=== PATIENT | male | born 1995 | race Caucasian/White ===

== ENCOUNTER 2023-07-09 07:20 | Outpatient (OUT) | payer SELFPAY ==
--- OUTSIDE RECORDS SUMMARY | 2023-07-09 07:23 | XMS_ITS | CCD ---
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 Name Role Phone Garrett Andre Unavailable Unavailable Garrett Andre Unavailable Unavailable NONE, NONE Consulting Unavailable NONE, NONE Primary Care Unavailable KRISTOPHER RISO MD Attending Unava KRISTOPHER Sood MD Admitting Unava ilsaw PATEL, DR REDMAN Admitting Unavailable JORGE, DR REDMAN Attending Unavailable JORGE, DR REDMAN Primary Care Unavailable DR ЮЛИЯ PATEL Consulting Unavailable DERICK NARANJO Admitting Unavailable DERICK NARANJO Attending Unavailable JORGE, DR REDMAN Primary Care Unavailable DERICK NARANJO Consulting Unavailable BRIANNA CHACON Attending Unavailable Problems Active Problems Problem Classification Problem Date Documented Da te Episodic/Chronic Residual codes; unclassified (2 sources) Other specified health status; Translations: [Other specified health status] Onset: 08-20-2022 Episodic Unclassified (2 sources) CONTACT W/AND (SUSP) EXPOS COVID-19; Translations: [CONTACT W/AND (SUSP) EXPOS COVID-19] Onset: 01-31-2022 Viral infection (1 source) COVID-19; Translations: [COVID-19] Onset: 01-31-2022 Past or Other Problems Problem Classification Problem Date Documented Da te Episodic/Chronic Diseases of mouth; excluding dental (4 sources) Diseases of lips; Translations: [DISEASES OF LIPS] Onset: 08-28-2021 Episodic Spondylosis; intervertebral disc disorders; other back problems (2 sources) Low back pain; Translations: [LOW BACK PAIN] Onset: 09-21-2020 Episodic Unclassified (1 source) CONTACT W/AND (SUSP) EXPOS COVID-19; Translations: [CONTACT W/AND (SUSP) EXPOS COVID-19] Onset: 01-27-2022 Results Test Name Value Interpretation Reference Range Facility Covid-19 PCR (CVDTBH)on 01-15 SARS-CoV-2 (COVID-19) RNA MARIANA+probe Ql (Unsp spec) Detected Critically abnormal NOT DETECTED [facility] Comment on above: Result Comment: This test is not yet jordin roved or cleared by the [place] FDA. When there are no FDA-approved or cleared tests available, and other criteria are met, FDA can make tests available under an emergency access mechanism called an Emergency Use Authorization (EUA). The EUA for this test is supported by the [place] of Health and Human Service's (HHS's) declaration that circumstances exist to justify the emergency use of in vitro diagnostics for the detection and/or diagnosis of the virus that causes COVID-19. This EUA will remain in effect (meaning this test can be used) for the duration of the COVID-19 declaration justifying emergency of IVDs, unless it is terminated or revoked by FDA (after which the test may no longer be used). Performed By: #### C VDTBH #### [facility] [address] [place] [address] Dr. Brian Gonzalez HERPES SIMPLEX 1/2 IGMon HSV, IgM I/II Combination 1.00 Ratio Critically high 0.00-0.90 [facility] Comment on above: Result Comment: Verified by repeat keaton lysis Negative <0.91 Equivocal 0.91 - 1.09 Positive >1.09 Performed By: #### H SVIGM #### [facility] [address] [place] [address] Dr. Brian Gonzalez HERPES SIMPLEX 1/2 IGGon HSV 1 IgG, Type Spec <0.91 Normal 0.00-0.90 [facility] Comment on above: Result Comment: Negative <0.91 Equivocal 0.91 - 1.09 Positive >1.09 Note: Negative indicates no antibodies detected to HSV-1. Equivocal may suggest early infection. If clinically appropriate, retest at later date. Positive indicates antibodies detected to HSV-1. Performed By: #### H SV IGG #### [facility] [address] [place] [address] Dr. Brian Goznalez HSV 2 IgG Type Spec <0.91 Normal 0.00-0.90 [facility] Comment on above: Result Comment: Negative <0.91 Equivocal 0.91 - 1.09 Positive >1.09 Note: Negative indicates no HSV-2 antibodies detected. Positive indicates HSV-2 antibodies detected. Equivocal and low positive HSV-2 screens (Index 0.91-5.00) may be false positive and are reflexed to supplemental testing in accordance with CDC guidelines. Performed By: #### H SV IGG #### [facility] [address] [place], [place] [address] Dr. Brian Gonzalez SHOULDER 2 OR MORE VIEWSon 1 07-04-2017 Thyrotropin Qn Final ReportAccession No: [id number] Performed: May 03 2018 6:59PMExamination: LEFT SHOULDER 2 OR MORE VIEWSLEFT SHOULDERREASON FOR STUDY: Pain after trauma.COMPARISON: None.REPORT: 3 views are done of the left shoulder displaying no fracture,dislocation, or bony lesion. The glenohumeral joint, AC joint, clavicle,andcoracoid process are unremarkable. Surrounding soft tissues areunremarkable.IMPRESSI ON:Unremarkable plain films of the left shoulder. Recommend followup asneeded.Interpreting Physician: KENTON LEONE D.O.Trans: [email or web address] : cc: Normal [facility] SPINE CERVICAL (2 or 3 VIEWS )on 05-03-2018 SPINE CERVICAL (2 or 3 VIEWS) Final ReportAccession No: [id number] Performed: May 03 2018 6:59PMExamination: SPINE CERVICAL (2 or 3 VIEWS)SPINE CERVICAL (2 or 3 VIEWS)HISTORY: Neck pain.COMPARISON: None.FINDINGS: AP, lateral and open-mouth odontoid views of the cervical spineareprovided. Vertebral bodies C1 through C7 are well delineated anddemonstratenormal height and alignment. Lateral masses of C1 are normally aligned [id number] the dens is intact. Intervertebral disc spaces are well-preserved.Precervic al soft tissues are within normal limits.IMPRESSION:Unrema rkable limited cervical spine series.Interpreting Physician: DIOMEDES TRIVEDI M.D.Trans: bminni : cc: Normal [facility] Encounters Encounter Date Encounter Type Care Provider Facility Start: 08-20-2022 End: 08-20-2022 ambulatory BRIANNA CHACON [facility] Start: 01-27-2022 End: 01-27-[address] ЮЛИЯ PATEL Facility:[facility] Start: 08-28-2021 End: 08-29-2021 ambulatory DERICK NARANJO Facility:[facility] Start: 09-21-2020 End: 09-21-2020 ambulatory NONE NONE Facility:[facility] Start: 05-03-2018 End: 05-03-2018 Emergency department patient visit Garrett Andre Facility:[place] Payers Date Payer Category Payer Unknown [id number] 1995 Unknown [id number] [id number] [id number] 1994 Unknown [id number] 2.16.84 [id number] 1959 Self-pay 1960 Unknown [id number] Unknown [id number] Summary Purpose Family History No Family History Records FoundNo Family History Records FoundNo Family History Records FoundNo Family History Records Found Advance Directives No Advanced Directives Records FoundNo Advanced Directives Records FoundNo Advanced Directives Records FoundNo Advanced Directives Records Found Additional Source Comments (unrecognized sect ion and content) No Status Records FoundNo Status Records FoundNo Status Records FoundNo Status Records Found INFORMATION SOURCE (unrecogn ized section and content) DATE CREATED AUTHOR 05/19/2018 [facility] DATE CREATED AUTHOR AUTHOR'S ORGANIZ ATION 04/04/2021 [facility] DATE CREATED AUTHOR AUTHOR'S ORGANIZ ATION 04/15/2022 [facility] DATE CREATED AUTHOR AUTHOR'S ORGANIZ ATION 08/22/2022 [facility] FOR RECORDS PERTAINING TO PATIENTS WHO ARE OR HAVE BEEN ENROLLED IN A CHEMICAL DEPENDENCY/SUBSTANCEABUSE PROGRAM, SOME INFORMATION MAY BE OMITTED. This clinical summary was aggregated from multiple sources. Caution should be exercised in using it in the provision of clinical care. This summary normalizes information from multiple sources, and as a consequence, information in this document may materially change the coding, format and clinical context of patient data. In addition, data may be omitted in some cases. CLINICAL DECISIONS SHOULD BE BASED ON THE PRIMARY CLINICAL RECORDS. [facility]. provides no warranty or guarantee of the accuracy or completeness of information in this document.
[2023-07-10 04:10] LABS: Varicella-Zoster V Ab, IgG 174 index (Immune >165)
[2023-07-10 06:09] LABS: Hep B Surface Ab Reactive (.)
== END 2023-07-09 07:21 | disposition home or self-care (01) ==
LOC: LAB 07:20
PROVIDERS: PCP Family Medicine; Visit Provider Family Medicine
DX: Z02.1 Encounter for pre-employment examination (principal)
CPT/HCPCS: 36415; 86706; 86787

== ENCOUNTER 2023-07-21 09:38 | Outpatient (OUT) | payer SELFPAY ==
--- OUTSIDE RECORDS SUMMARY | 2023-07-21 09:46 | XMS_ITS | CCD ---
Author Name Unknown Address [facility] [address] [place] [address] Organization [facility] Care Team Providers Care Animal Bounty Hunter Name Role Phone Garrett Andre Unavailable Unavailable Garrett Andre Unavailable Unavailable NONE, NONE Consulting Unavailable NONE, NONE Primary Care Unavailable KRISTOPHER RIOS MD Attending Unava KRISTOPHER Sood MD Admitting [...] spec) Detected Critically abnormal NOT DETECTED [facility] Comment on above: Result Comment: This test is not yet jordin roved or cleared by the [place] FDA. When there are no FDA-approved or cleared tests available, and other criteria are met, FDA can make tests available under an emergency access mechanism called an Emergency Use Authorization (EUA). The EUA for this test is supported by the [place] Clean[place] of Health and Human Service's (HHS's) declaration [...] used). Performed By: #### C VDTBH #### [facility] [address] [place] [address] Dr. Brian Gonzalez HERPES SIMPLEX 1/2 IGMon HSV, IgM I/II Combination 1.00 Ratio Critically high 0.00-0.[address] [facility] Comment on above: Result Comment: Verified by repeat keaton lysis Negative <0.91 Equivocal 0.91 - 1.09 Positive >1.09 Performed By: #### H SVIGM #### [facility] [address] [place] [address] Dr. Brian Gonzalez HERPES SIMPLEX 1/2 IGGon HSV 1 IgG, Type Spec <0.91 Normal 0.00-0.[address] [facility] Comment on above: Result Comment: Negative <0.91 Equivocal 0.91 - 1.09 Positive >1.09 Note: Negative indicates no antibodies detected to HSV-1. Equivocal may suggest early infection. If clinically appropriate, retest at later date. Positive indicates antibodies detected to HSV-1. Performed By: #### H SV IGG #### [facility] [address] [place] [address] Dr. Brian Gonzalez HSV 2 IgG Type Spec <0.91 Normal 0.00-0.[address] [facility] Comment on above: Result Comment: Negative <0.91 Equivocal 0.91 - 1.09 Positive >1.09 Note: Negative indicates no HSV-2 antibodies detected. Positive indicates HSV-2 antibodies detected. Equivocal and low positive HSV-2 screens (Index 0.91-5.00) may be false positive and are reflexed to supplemental testing in accordance with CDC guidelines. Performed By: #### H SV IGG #### [facility] [address] [place], [place] [address] Dr. Brian Gonzalez SHOULDER 2 OR MORE VIEWSon 1 07-04-2017 Thyrotropin Qn Final ReportAccession No: [id number] Performed: May 03 2018 6:59PMExamination: LEFT [...] KENTON LEONE D.O.Trans: [email or web address] : cc: Normal [facility] SPINE CERVICAL (2 or 3 VIEWS )on 05-03-2018 SPINE CERVICAL (2 or 3 VIEWS) Final ReportAccession No: [id number] Performed: May 03 2018 6:59PMExamination: SPINE CERVICAL (2 or 3 VIEWS)SPINE CERVICAL (2 or 3 VIEWS)HISTORY: Neck pain.COMPARISON: None.FINDINGS: AP, lateral and open-mouth odontoid views of the cervical spineareprovided. Vertebral bodies C1 through C7 are well delineated anddemonstratenormal height and alignment. Lateral masses of C1 are normally aligned [id number] the dens is intact. Intervertebral disc spaces are well-preserved.Precervic al soft tissues are within normal limits.IMPRESSION:Unrema rkable limited cervical spine series.Interpreting Physician: DIOMEDES TRIVEDI M.D.Trans: [email or web address] : cc: Normal [facility] Encounters Encounter Date Encounter Type Care Provider Facility Start: 08-20-2022 End: 08-20-2022 ambulatory BRIANNA CHACON [facility] Start: 01-27-2022 End: 01-27-[address] ЮЛИЯ PATEL Facility:[facility] Start: 08-28-2021 End: 08-29-2021 ambulatory DERICK NARANJO Facility:[facility] Start: 09-21-2020 End: 09-21-2020 ambulatory NONE NONE Facility:[facility] Start: 05-03-2018 End: 05-03-2018 Emergency department patient visit Garrett Andre Facility:[place] Payers Date Payer Category Payer Unknown [id number] 1995 Unknown [id number] 2.16.84 [id number] 1994 Unknown [id number] 2.16.84 [id number] 1960 Self-pay 1960 Unknown [id number] Unknown [id number] Summary Purpose Family History No Family History [...] section and content) DATE CREATED AUTHOR 05/19/2018 [facility] DATE CREATED AUTHOR AUTHOR'S ORGANIZ ATION 04/04/2021 [facility] DATE CREATED AUTHOR AUTHOR'S ORGANIZ ATION 04/15/2022 [facility] DATE CREATED AUTHOR AUTHOR'S ORGANIZ ATION 08/22/2022 [facility] FOR RECORDS PERTAINING TO PATIENTS WHO ARE [...] BE BASED ON THE PRIMARY CLINICAL RECORDS. [facility]. provides no warranty or guarantee of the accuracy or completeness of information in this document.
[2023-07-23 07:17] LABS: QuantiFERON-TB Gold Plus Negative (Negative)
== END 2023-07-21 09:39 | disposition home or self-care (01) ==
LOC: LAB 09:43
PROVIDERS: PCP Family Medicine; Visit Provider Family Medicine
DX: Z11.1 Encounter for screening for respiratory tuberculosis (principal)
CPT/HCPCS: 36415; 86480

== ENCOUNTER 2024-08-22 11:52 | Outpatient (OUT) | payer OTHER, SELFPAY ==
--- OUTSIDE RECORDS SUMMARY | 2024-08-22 12:05 | XMS_ITS | CCD ---
Author Organization [facility] [place] 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 When there are no FDA-approved or cleared tests available, and other criteria are met, FDA can make tests available under an emergency access mechanism called an Emergency Use Authorization (EUA). The EUA for this test is supported by the Ambulance Attendant of Health and Human Service's (HHS's) declaration [...] used). Performed By: #### C VDTBH #### [facility] [place] [facility] [address] [place] [address] Dr. Brian Gonzalez HERPES SIMPLEX 1/2 IGMon HSV, IgM I/II Combination 1.00 Ratio Critically high 0.00-0.90 [facility] [place] [place] [facility] Comment on above: Result Comment: Verified by repeat keaton lysis Negative <0.91 Equivocal 0.91 - 1.09 Positive >1.09 Performed By: #### H SVIGM #### [facility] [place] [facility] [address] [place] [address] Dr. Brian Gonzalez HERPES SIMPLEX 1/2 IGGon HSV 1 IgG, Type Spec <0.91 Normal 0.00-0.90 [facility] [place] [facility] Comment on above: Result Comment: Negative <0.91 Equivocal 0.91 - 1.09 Positive >1.09 Note: Negative indicates no antibodies detected to HSV-1. Equivocal may suggest early infection. If clinically appropriate, retest at later date. Positive indicates antibodies detected to HSV-1. Performed By: #### H SV IGG #### [facility] [place] [facility] [address] [place] [address] Dr. Brian Gonzalez HSV 2 IgG Type Spec <0.91 Normal 0.00-0.90 [facility] Comment on above: Result Comment: Negative <0.91 Equivocal 0.91 - 1.09 Positive >1.09 Note: Negative indicates no HSV-2 antibodies detected. Positive indicates HSV-2 antibodies detected. Equivocal and low positive HSV-2 screens (Index 0.91-5.00) may be false positive and are reflexed to supplemental testing in accordance with CDC guidelines. Performed By: #### H SV IGG #### [facility] [place] [facility] [address] [place], [place] [address] Dr. Brian Gonzalez SHOULDER 2 OR MORE VIEWSon 1 07-04-2017 Thyrotropin Qn Final ReportAccession No: [id number] Performed: May 03 2018 6:59PMExamination: LEFT [...] KENTON LEONE D.O.Trans: [email or web address] : cc: Normal [facility] SPINE CERVICAL (2 or 3 VIEWS )on 05-03-2018 SPINE CERVICAL (2 or 3 VIEWS) Final ReportAccession No: [id number] Performed: May 03 2018 6:59PMExamination: SPINE CERVICAL (2 or 3 VIEWS)SPINE CERVICAL (2 or 3 VIEWS)HISTORY: Neck pain.COMPARISON: None.FINDINGS: AP, lateral and open-mouth odontoid views of the cervical spineareprovided. Vertebral bodies C1 through C7 are well delineated anddemonstratenormal height and alignment. Lateral masses of C1 are normally aligned [id number] the dens is intact. Intervertebral disc spaces are well-preserved.Precervic al soft tissues are within normal limits.IMPRESSION:Unrema rkable limited cervical spine series.Interpreting Physician: DIOMEDES TRIVEDI M.D.Trans: bminni : cc: Normal [facility] Encounters Encounter Date Encounter Type Care Provider Facility Start: 08-20-2022 End: 08-20-2022 ambulatory [facility] Start: 01-27-2022 End: 01-27-[address] ЮЛИЯ PATEL Facility:[facility] Start: 08-28-2021 End: 08-29-2021 ambulatory DERICK NARANJO Facility:[facility] Start: 09-21-2020 End: 09-21-2020 ambulatory NONE NONE Facility:[facility] Start: 05-03-2018 End: 05-03-2018 Emergency department patient visit Garrett Andre Facility:[place] Payers Date Payer Category Payer Unknown [id number] 1995 Unknown [id number] 2.16.84 [id number] 1994 Unknown [id number] [id number] [id number] 1960 Self-pay 1960 Unknown [id number] Unknown [id number] Summary Purpose Family History No Family History [...] section and content) DATE CREATED AUTHOR 05/19/2018 [facility] DATE CREATED AUTHOR AUTHOR'S ORGANIZ ATION 04/04/2021 [facility] DATE CREATED AUTHOR AUTHOR'S ORGANIZ ATION 04/15/[address] [facility] DATE CREATED AUTHOR AUTHOR'S ORGANIZ ATION 08/22/2022 [facility] FOR RECORDS PERTAINING TO PATIENTS WHO [...] BE BASED ON THE PRIMARY CLINICAL RECORDS. [facility] [facility]. provides no warranty or guarantee of the accuracy or completeness of information in this document.
[2024-08-24 06:08] LABS: QuantiFERON-TB Gold Plus Negative (Negative)
== END 2024-08-22 11:53 | disposition home or self-care (01) ==
LOC: LAB 11:55
PROVIDERS: PCP Family Medicine; Visit Provider Family Medicine
DX: Z11.1 Encounter for screening for respiratory tuberculosis (principal)
CPT/HCPCS: 36415; 86480

== ENCOUNTER 2025-04-19 15:10 | Outpatient (OUT) | payer SELFPAY ==
[2025-04-21 05:07] LABS: Measles Antibodies, IgG 26.2 AU/mL (Immune >16.4); Mumps Abs, IgG 20.3 AU/mL (Immune >10.9); Rubella Antibodies, IgG 13.50 index (Immune >0.99)
== END 2025-04-19 15:11 | disposition home or self-care (01) ==
LOC: LAB 15:12
PROVIDERS: PCP Family Medicine; Visit Provider Nurse Practitioner Family
DX: Z02.0 Encounter for examination for admission to educational institution (principal)
CPT/HCPCS: 36415; 86735; 86762; 86765